=== PATIENT | female | born 1985 ===

== ENCOUNTER 2017-03-04 20:29 | Emergency (ER) | payer SELFPAY ==
[2016-11-17 21:39] VITALS: BMI 30.8
[2017-03-04] MEDS ORDERED: Lactated Ringer's 1,000 ML IV SCH (21:15)
--- NOTE | 2017-03-04 21:23 | OBHP ---
Datetime: 03/04/2017 21:17 IP Adm Impression: , intrauterine ; No Active Labor IP Admit Plan: Observation/Evaluation; Discharge home Admit Comment, IP Provider: The patient's a 32-year-old 2 para 2 EDC 03/29/[address] ge stational age 36 weeks patient presents to labor and delivery complaining of pelvic discomfort and ba ck pain patient also reports some coffee ground discharge patient denies rupture membranes bright red vaginal bleeding she reports good movement patient since care is unremarkable patient says she had a pelvic exam and cultures done earlier late last week. Past medical history none Past surgical history none No known drug allergies Social history denies alcohol tobacco use Obstetrical history 2 previous normal spontaneous vaginal deliveries patient's Review of systems patient denies headache chest pain shortness of breath palpitations or cold into lerance bruisability musculoskeletal or neurological complaints dysuria constipation vaginal bleeding Vital signs stable afebrile Physical exam see notes Intrauterine at 36 weeks contractions IV fluid hydration urinalysis Observation external monitor Bedside sonogram vertex presentation Anticipate discharge Pelvic Type - PN: Adequate Extremities - PN: Normal Abdomen - PN: Normal Back - PN: Normal Breast - PN: Not Done Lungs - PN: Normal Heart - PN: Normal Thyroid - PN: Normal Neurologic - PN: Normal HEENT - PN: Normal General - PN: Normal Weight - Estimated: 6 Presentation-Admit: Vertex FHR - Baseline A Provider: 145 Gestation - Est Wks by US: 36.0 Pool Provider: Negative EGA AdmitDate IP: 36.3 Vital Signs Provider: Reviewed IP Chief Complaint: Uterine contractions; Maternal discomfort NICHD Variability Prov Fetus A: Moderate 6-25bpm NICHD Accel Fetus A IP Provider: [id number] FHR Category Provider Fetus A: Category I NICHD Decel Fetus A IP Provider: None Dilatation, Provider: 1 Effacement, Provider: 50 Station, Provider: -2 Genitourinary Exam: Normal DTRs - PN: Normal
[2017-03-04 22:21] LABS: RBC URINE < 1 /hpf (0-3); URINE BACTERIA RARE (<OCC); URINE BILIRUBIN NEGATIVE (NEGATIVE); URINE BLOOD SMALL (NEGATIVE); URINE COLOR YELLOW (YELLOW); URINE GLUCOSE (UA) NEG (Normal); URINE KETONE NEGATIVE (NEGATIVE); URINE LEUKOCYTE ESTERASE NEG Leu/uL (Negative); URINE PROTEIN NEGATIVE (NEGATIVE); URINE UROBILINOGEN 0.2-1.0 mg/dL (0.2-1.0); WBC URINE 1 /hpf (0-5)
== END 2017-03-04 22:40 | disposition home or self-care (01) ==
LOC: H.EROB2 20:29
DX: O47.03 False labor before 37 completed weeks of gestation, third trimester (principal); Z3A.36 36 weeks gestation of pregnancy

== ENCOUNTER 2017-03-05 06:27 | Inpatient (IN) | payer MEDICAID, OTHER, SELFPAY ==
[2017-03-05] MEDS: Lactated Ringer's 1,000 ML IV SCH ×2 (07:00→15:45)
[2017-03-05] MEDS ORDERED: Oxytocin 20 UNITS in Lactated Ringer's 500 ML IV SCH (07:20)
[2017-03-05 07:25] LABS: BASO # 0.1 K/uL (0.0-0.2); BASO % 0.6 % (0.0-2.0); EOS % 0.1 % (0.0-4.0); HEMATOCRIT 30.9 % (34.0-47.0); LYMPH # 1.1 K/uL (1.0-4.3); LYMPH % 8.6 % (20.0-40.0); MEAN CORPUSCULAR HEMOGLOBIN 22.6 pg (27.0-31.0); MEAN CORPUSCULAR HGB CONC 30.9 g/dL (33.0-37.0); MEAN PLATELET VOLUME 8.8 fl (7.2-11.7); MONO # 0.6 K/uL (0.0-0.8); MONO % 5.1 % (0.0-10.0); NEUT # 10.7 K/uL (1.8-7.0); NEUT % 85.6 % (50.0-75.0); PLATELET COUNT 218 K/uL (130-400); RED CELL DISTRIBUTION WIDTH 17.5 % (11.5-14.5); WHITE BLOOD COUNT 12.5 K/uL (4.8-10.8)
[2017-03-05] MEDS ORDERED: Benzocaine/Menthol SPRAY TOP PRN (07:29)
--- NOTE | 2017-03-05 07:29 | OBDS ---
MATERNAL INFORMATION Provider Comments: Delivered live baby boy at 6:14 AM the baby was bulb suctioned on the perineum an d transferred to maternal chest and the cord was clamped and cut and 3 vessels noted, Cord blood was obtained and sent to the lab. The placenta was delivered at 6:17 AM intact the estimated blood loss w as 200 mL. There were no vaginal lacerations the mother tolerated the procedure well and the baby mark t to the well baby nursery weighing 6 lbs. 13 oz. 3115 g with Apgars of 9 and 9 LABOR SUMMARY EDC: 03/29/2017 00:00
[2017-03-05 13:50] LABS: NEUTROPHIL 87 % (42-75); TOTAL CELLS COUNTED 100
[2017-03-05 13:51] LABS: LARGE PLATELETS PRESENT
[2017-03-05] MEDS: Oxycodone/Acetaminophen 5/325 mg Tab PO PRN (15:07)
[2017-03-06] MEDS: Oxycodone/Acetaminophen 5/325 mg Tab PO PRN (02:56)
[2017-03-06 07:01] LABS: BASO # 0.1 K/uL (0.0-0.2); BASO % 0.5 % (0.0-2.0); EOS # 0.1 K/uL (0.0-0.7); EOS % 0.5 % (0.0-4.0); HEMATOCRIT 24.9 % (34.0-47.0); LYMPH # 1.6 K/uL (1.0-4.3); LYMPH % 15.5 % (20.0-40.0); MEAN CELL VOLUME 72.8 fl (81.0-99.0); MEAN CORPUSCULAR HEMOGLOBIN 23.1 pg (27.0-31.0); MEAN CORPUSCULAR HGB CONC 31.7 g/dL (33.0-37.0); MEAN PLATELET VOLUME 8.3 fl (7.2-11.7); MONO # 0.8 K/uL (0.0-0.8); MONO % 7.3 % (0.0-10.0); NEUT # 8.1 K/uL (1.8-7.0); NEUT % 76.2 % (50.0-75.0); NRBC % 0.2 % (0.0-0.0); RED CELL DISTRIBUTION WIDTH 17.6 % (11.5-14.5); WHITE BLOOD COUNT 10.6 K/uL (4.8-10.8)
[2017-03-06] MEDS: Lactated Ringer's 1,000 ML IV SCH (07:07)
[2017-03-06] MEDS: Benzocaine/Menthol (Cepacol) Lozenge PO PRN ×3 (08:49→20:01)
[2017-03-06] MEDS ORDERED: Measles, Mumps, and Rubella Vaccine SC ONE (09:00)
[2017-03-06] MEDS ORDERED: Benzocaine/Menthol (Cepacol) Lozenge PO PRN (09:06)
--- NOTE | 2017-03-06 16:03 | OBPPN ---
Datetime: 03/06/2017 06:53 PP Pain Prov: Within normal limits PP Nausea Prov: Denies PP Flatus Prov: Yes PP BM Prov: No PP Breasts Prov: Normal PP Heart Prov: Normal PP Lungs Prov: Normal PP Abdomen/Uterus Prov: Normal PP Lochia Prov: Normal PP Vulva/Perineum Prov: Normal PP CVA Tenderness Prov: Normal PP Extremities Prov: Normal PP Comments Phys Exam Prov: lochia less than menses PP Impression Prov: Normal progression PP Plan Prov: Continue present management PP Progress Note Prov: PPD #1 Patient doing well. Complaints of sorethroat and nasal congestion. Tolerating regular diet. Breast feeding without difficulty. OOB to bathroom only. Lochia is less than menses. O: as above A/P: PPD #1 s/p -Normal post progression -pain management -cepachol for sore throat -encouraged ambulation -encouraged continued . -MMR ordered Pattie Lindo PGY1 OB Hospitalist on-call...pt seen by me on ronds this morning...correction to above note (no transf usion)...she is asymptomatic and will monitor...will give Fe supplement as out-patient IP PP Procedures: None; Transfusion Vital Signs Provider PP: Reviewed
[2017-03-07] MEDS: Benzocaine/Menthol (Cepacol) Lozenge PO PRN (12:16)
--- NOTE | 2017-03-07 13:12 | OBDCSUM ---
Datetime: 03/07/2017 09:31 Discharged to, Provider: Home Follow up at, Provider: OB Disch Instr Activity: Normal activity; May be up to bathroom; May be up for meals; May Shower Disch Instr Diet: Regular Discharge Instructions, Provider: Routine instructions given Discharge Diagnosis, Provider: Term Delivered Follow up in weeks, Provider: 6 weeks Disch Referrals: None Contraception discussed, Prov: Yes Disch Activity Restrictions: Minimize stair-climbing; No sexual activity; Nothing in vagina - Interc ourse, tampons, douche Discharge Comment, Provider: patient was seen with the resident and agree with the patient cleared f or discharge patient instructed to follow up at [facility] in 6 weeks and nothing per vagin a Motrin as needed Contraception after Delivery: Undecided
--- NOTE | 2017-03-07 13:13 | OBPPN ---
Datetime: 03/07/2017 07:41 PP Pain Prov: Within normal limits PP Nausea Prov: Denies PP Flatus Prov: Yes PP BM Prov: No PP Breasts Prov: Normal PP Heart Prov: Normal PP Lungs Prov: Normal PP Abdomen/Uterus Prov: Normal PP Lochia Prov: Normal PP Vulva/Perineum Prov: Normal PP CVA Tenderness Prov: Normal PP Extremities Prov: Normal PP Impression Prov: Normal progression PP Plan Prov: Discharge PP Progress Note Prov: PPD#2 Patient complains of sorethroat, some nasal congestion, now starting to have cough. Some relief wi th cepachol. Her children are sick contacts as well as her partner. She is tolerating regular diet. D enies nausea, vomiting, and BM. +Flatus. o: afebrile a: PPD #2 s/p patient remains afebrile. symptoms likely due to viral illness. -pain control -oob and ambulating -encouraged -discharge Catracho Lindo PGY1 patient was seen with the resident and agree with the patient cleared for discharge patient instru cted to follow up at [facility] in 6 weeks and nothing per vagina Motrin as needed IP PP Procedures: None Vital Signs Provider PP: Reviewed
== END 2017-03-07 15:00 | disposition home or self-care (01) | DRG 372 ==
LOC: H.EROB2 06:27 → H.L&D 06:55 → H.OB/GYN 14:30
PROVIDERS: ADMIT Obstetrics & Gynecology Gynecology; ATTEND Obstetrics & Gynecology Gynecology
PROC: 10E0XZZ Delivery of Products of Conception, External Approach (ICD-10-PCS; principal; 2017-03-05)
PROC: 4A1HXCZ Monitoring of Products of Conception, Cardiac Rate, External Approach (ICD-10-PCS; 2017-03-05)
DX: O60.14X0 Preterm labor third trimester with preterm delivery third trimester, not applicable or unspecified (principal); O98.52 Other viral diseases complicating childbirth; Z37.0 Single live birth; Z3A.36 36 weeks gestation of pregnancy; B34.9 Viral infection, unspecified